=== PATIENT | male | born 1985 | race Caucasian/White ===

== ENCOUNTER 2022-11-07 22:01 | Inpatient (IN) | payer OTHER ==
[~2022-11-07 22:01] MED LIST: Iopamidol 300 61% 100 ML VIAL FS ONE
[2022-11-07 22:53] LABS: #Basophils 0.1 10x3/uL (0.0-0.2); #Eosinphils 0.2 10x3/uL (0.0-0.5); #Monocytes 1.4 10x3/uL (0.0-1.1); #Neutrophils 7.9 10x3/uL (1.5-8.4); %Basophils 0.6 % (0.0-2.0); %Eosinophils 1.9 % (0.0-6.0); %Lymphocytes 21.4 % (18.0-47.0); %Monocytes 11.6 % (0.0-10.0); %Neutrophils 64.2 % (40.0-75.0); Hemoglobin 12.7 g/dL (13.5-17.5); Mean Corpuscular HGB CONC 32.6 g/dL (32.0-36.0); Mean Corpuscular Hemoglobin 28.7 pg (27.0-33.0); Mean Corpuscular Volume 87.8 fl (81.2-95.1); Mean Platelet Volume 9.1 fl (7.4-10.4); Platelet Count 565 10x3/uL (150-450); RBC Distribution Width 17.2 % (11.5-14.5); Red Blood Cell (RBC) Count 4.43 10x6/uL (4.32-5.72); White Blood Cell (WBC) Count 12.4 10x3/uL (3.5-10.5)
[2022-11-07] MEDS ORDERED: Ondansetron PF 4 MG/2 ML Vial ONE (22:54)
[2022-11-07 23:07] LABS: Acetaminophen Less than 10 mcg/mL (10.0-30.0); Alcohol Less than 10.0 mg/dL (Less than 10); Salicylate Less than 8.0 mg/dL (15.0-30.0)
[2022-11-07 23:09] LABS: ALT (SGPT) 23 U/L (8-55); AST (SGOT) 28 U/L (5-34); Albumin 4.6 g/dL (3.5-5.0); Alkaline Phosphatase 90 U/L (40-110); Anion Gap 16 mmol/L (10-20); BUN (Urea Nitrogen) 9 mg/dL (8.9-20.6); Bilirubin, Total 0.3 mg/dL (0.2-1.2); CK (CPK) 630 U/L (30-200); Calc. Creatinine Clearance 0 mL/min (70-130); Calcium 10.1 mg/dL (7.8-10.44); Carbon Dioxide 23 mmol/L (22-29); Chloride 104 mmol/L (98-107); Estimated GFR 114; Globulin 2.9 g/dL (2.4-3.5); Glucose 119 mg/dL (70-105); Lipase 9 U/L (8-78); Magnesium 1.6 mg/dL (1.6-2.6); Potassium 3.9 mmol/L (3.5-5.1); Protein, Total 7.5 g/dL (6.0-8.3); Sodium 139 mmol/L (136-145)
[2022-11-07] MEDS ORDERED: Ketorolac Tromethamine 30 MG/ML VIAL ONE (23:35)
[2022-11-08 01:13] LABS: Bilirubin Neg (Negative); Blood, Urine Negative (Negative); Clarity Clear (Clear); Glucose, Urine (Dipstick) Normal (Negative); Ketone, Urine Negative (Negative); Leukocyte Negative (Negative); Nitrite Negative (Negative); Protein, Urine (Dipstick) 30 mg/dl (Neg-Trace); Urobilinogen Normal mg/dL (Less than 2)
[2022-11-08] MEDS ORDERED: hydrOXYzine 25 MG TAB ONE (01:13)
[2022-11-08 01:20] LABS: Amphetamine Not Detected (NotDetected); Barbiturates Screen Not Detected (NotDetected); Benzodiazepine Screen Detected (NotDetected); Cocaine Metabolite Screen Not Detected (NotDetected); Methadone Not Detected (NotDetected); Methamphetamine Not Detected (NotDetected); Opiate Screen Not Detected (NotDetected); Oxycodone Screen Not Detected (NotDetected); Phencyclidine (PCP) Not Detected (NotDetected); THC/Cannabinoid Screen Not Detected (NotDetected); Tricyclic Screen Detected (NotDetected)
[2022-11-08 01:54] LABS: CAUTI Indications for Culture Alt mental st,lethar; RBC/HPF None Seen HPF (0-3); Squamous Epithelial None Seen HPF (0-3); WBC/HPF 0-3 HPF (0-3)
[2022-11-08 01:55] LABS: Bacteria/HPF None Seen HPF (None Seen); Urine Culture Reflex No No
[2022-11-08] MEDS ORDERED: Dicyclomine 20 MG/2 ML VIAL ONE (02:35)
[2022-11-08] MEDS ORDERED: Acetaminophen 325 MG TAB PO PRN (03:15)
[2022-11-08] MEDS ORDERED: Nicotine 14 MG PATCH TD SCH (03:15)
[2022-11-08] MEDS ORDERED: Ondansetron PF 4 MG/2 ML Vial IVP PRN (03:15)
[2022-11-08] MEDS ORDERED: Metoprolol Tartrate 25 MG TAB PO SCH (03:15)
[2022-11-08] MEDS ORDERED: Calcium Carbonate 500 MG ChewTAB PO PRN (03:15)
[2022-11-08] MEDS ORDERED: Senokot S 8.6-50 MG TAB PO PRN (03:15)
[2022-11-08] MEDS ORDERED: Guaifenesin DM 100-10/5 ML UDCUP PO PRN (03:15)
[2022-11-08] MEDS ORDERED: Nicotine 14 MG PATCH TD PRN (03:22)
[2022-11-08] MEDS ORDERED: Cyclobenzaprine 10 MG TAB PO PRN (03:23)
[2022-11-08] MEDS ORDERED: Dicyclomine 10 MG CAP PO PRN (03:23)
[2022-11-08 04:04] VITALS: BMI 18.8
[2022-11-08] MEDS ORDERED: Magnesium 2 GM/50 ML(in water) 2 GM in Premix Bag 1 BAG IVPB SCH (04:15)
[2022-11-08] MEDS ORDERED: cloNIDine 0.1 MG TAB PO SCH (04:15)
[2022-11-08] MEDS ORDERED: Lorazepam 2 MG/ML VIAL SLOW IVP SCH ×3 (04:15→14:44)
[2022-11-08] MEDS ORDERED: Thiamine HCl 200 MG/2 ML VIAL SLOW IVP SCH (04:15)
[2022-11-08] MEDS: Sodium Chloride 0.9% 1,000 ML IV SCH ×2 (04:32→12:47)
[2022-11-08] MEDS: Metoprolol Tartrate 25 MG TAB PO SCH ×2 (08:38→22:07)
[2022-11-08] MEDS: Sucralfate 1 GM TAB PO SCH ×4 (08:38→22:07)
[2022-11-08] MEDS: Multivitamin W/ Minerals 1 TAB PO SCH (08:38)
[2022-11-08] MEDS: Thiamine 100 MG TAB PO SCH (08:38)
[2022-11-08] MEDS: Folic Acid 1 MG TAB PO SCH (08:39)
[2022-11-08] MEDS: Buprenorphine 8mg/Naloxone 2mg per 1 FILM PO SCH (08:39)
[2022-11-08] MEDS: Pancrelipase DR 12,000 1 CAP PO SCH ×3 (08:39→16:04)
[2022-11-08] MEDS ORDERED: Lorazepam 1 MG TAB PO SCH (09:00)
[2022-11-08] MEDS ORDERED: QUEtiapine 25 MG TAB PO SCH ×2 (12:15→21:00)
[2022-11-08] MEDS ORDERED: Lorazepam 1 MG TAB PO PRN (12:24)
[2022-11-08] MEDS: chlordiazePOXIDE HCl 25 MG CAP PO SCH ×2 (14:11→22:06)
[2022-11-08] MEDS ORDERED: Dexmedetomidine In 0.9 % NaCl 100 ML IVPB SCH (17:45)
[2022-11-09] MEDS: Sodium Chloride 0.9% 1,000 ML IV SCH (02:12)
[2022-11-09 03:38] LABS: #Basophils 0.1 10x3/uL (0.0-0.2); #Eosinphils 0.3 10x3/uL (0.0-0.5); #Monocytes 1.2 10x3/uL (0.0-1.1); #Neutrophils 5.8 10x3/uL (1.5-8.4); %Basophils 0.8 % (0.0-2.0); %Lymphocytes 24.6 % (18.0-47.0); %Neutrophils 59.4 % (40.0-75.0); Hemoglobin 10.5 g/dL (13.5-17.5); Mean Corpuscular HGB CONC 31.4 g/dL (32.0-36.0); Mean Corpuscular Hemoglobin 28.5 pg (27.0-33.0); Mean Corpuscular Volume 90.8 fl (81.2-95.1); Mean Platelet Volume 9.6 fl (7.4-10.4); Platelet Count 399 10x3/uL (150-450); RBC Distribution Width 16.9 % (11.5-14.5); Red Blood Cell (RBC) Count 3.68 10x6/uL (4.32-5.72); White Blood Cell (WBC) Count 9.8 10x3/uL (3.5-10.5)
[2022-11-09 03:57] LABS: Anion Gap 13 mmol/L (10-20); BUN (Urea Nitrogen) 9 mg/dL (8.9-20.6); CK (CPK) 684 U/L (30-200); Calc. Creatinine Clearance 135 mL/min (70-130); Carbon Dioxide 21 mmol/L (22-29); Chloride 108 mmol/L (98-107); Estimated GFR 121; Glucose 70 mg/dL (70-105); Magnesium 1.8 mg/dL (1.6-2.6); Potassium 3.9 mmol/L (3.5-5.1); Sodium 138 mmol/L (136-145)
[2022-11-09] MEDS: QUEtiapine 100 MG TAB PO SCH (09:03)
[2022-11-09] MEDS: Folic Acid 1 MG TAB PO SCH (09:03)
[2022-11-09] MEDS: Metoprolol Tartrate 25 MG TAB PO SCH ×2 (09:03→20:01)
[2022-11-09] MEDS: Thiamine 100 MG TAB PO SCH (09:03)
[2022-11-09] MEDS: Buprenorphine 8mg/Naloxone 2mg per 1 FILM PO SCH (09:03)
[2022-11-09] MEDS: chlordiazePOXIDE HCl 25 MG CAP PO SCH ×3 (09:03→20:00)
[2022-11-09] MEDS: Multivitamin W/ Minerals 1 TAB PO SCH (09:03)
[2022-11-09] MEDS: Sucralfate 1 GM TAB PO SCH ×4 (09:03→20:00)
[2022-11-09] MEDS: Bupropion 150 MG XL TAB PO SCH (09:03)
[2022-11-09] MEDS: Pancrelipase DR 12,000 1 CAP PO SCH ×3 (09:45→16:40)
[2022-11-10 04:29] LABS: Anion Gap 12 mmol/L (10-20); BUN (Urea Nitrogen) 7 mg/dL (8.9-20.6); CK (CPK) 345 U/L (30-200); Calc. Creatinine Clearance 137 mL/min (70-130); Calcium 8.9 mg/dL (7.8-10.44); Carbon Dioxide 25 mmol/L (22-29); Chloride 108 mmol/L (98-107); Estimated GFR 121; Glucose 99 mg/dL (70-105); Magnesium 1.6 mg/dL (1.6-2.6); Potassium 3.8 mmol/L (3.5-5.1); Sodium 141 mmol/L (136-145)
[2022-11-10] MEDS: Sucralfate 1 GM TAB PO SCH ×4 (06:43→20:01)
[2022-11-10] MEDS: chlordiazePOXIDE HCl 25 MG CAP PO SCH ×2 (08:12→20:01)
[2022-11-10] MEDS: QUEtiapine 100 MG TAB PO SCH (08:12)
[2022-11-10] MEDS: Multivitamin W/ Minerals 1 TAB PO SCH (08:12)
[2022-11-10] MEDS: Bupropion 150 MG XL TAB PO SCH (08:12)
[2022-11-10] MEDS: Pancrelipase DR 12,000 1 CAP PO SCH ×3 (08:12→16:46)
[2022-11-10] MEDS: Thiamine 100 MG TAB PO SCH (08:12)
[2022-11-10] MEDS: Metoprolol Tartrate 25 MG TAB PO SCH ×2 (08:12→20:01)
[2022-11-10] MEDS: Folic Acid 1 MG TAB PO SCH (08:12)
[2022-11-10] MEDS: Buprenorphine 8mg/Naloxone 2mg per 1 FILM PO SCH (08:13)
[2022-11-10] MEDS ORDERED: Magnesium 2 GM/50 ML(in water) 2 GM in Premix Bag 1 BAG IVPB SCH (12:15)
[2022-11-10] MEDS ORDERED: Electrolyte Replacement Protocol 1 EACH FS PRN (12:21)
[2022-11-10] MEDS ORDERED: Ketorolac Tromethamine 30 MG/ML VIAL IVP SCH (15:00)
[2022-11-10] MEDS ORDERED: Ketorolac Tromethamine 30 MG/ML VIAL IVP PRN (20:14)
[2022-11-10] MEDS ORDERED: Acetaminophen 500 MG TAB PO SCH (20:15)
[2022-11-11 03:27] LABS: Hemoglobin 10.7 g/dL (13.5-17.5); Mean Corpuscular Hemoglobin 28.5 pg (27.0-33.0); Mean Corpuscular Volume 88.8 fl (81.2-95.1); Mean Platelet Volume 9.4 fl (7.4-10.4); Platelet Count 369 10x3/uL (150-450); RBC Distribution Width 16.3 % (11.5-14.5); Red Blood Cell (RBC) Count 3.76 10x6/uL (4.32-5.72); White Blood Cell (WBC) Count 6.4 10x3/uL (3.5-10.5)
[2022-11-11 03:42] LABS: ALT (SGPT) 19 U/L (8-55); AST (SGOT) 19 U/L (5-34); Albumin 3.4 g/dL (3.5-5.0); Alkaline Phosphatase 80 U/L (40-110); Anion Gap 10 mmol/L (10-20); BUN (Urea Nitrogen) 13 mg/dL (8.9-20.6); Bilirubin, Total 0.1 mg/dL (0.2-1.2); CK (CPK) 150 U/L (30-200); Calc. Creatinine Clearance 124 mL/min (70-130); Calcium 8.8 mg/dL (7.8-10.44); Carbon Dioxide 26 mmol/L (22-29); Chloride 107 mmol/L (98-107); Estimated GFR 118; Globulin 2.1 g/dL (2.4-3.5); Glucose 131 mg/dL (70-105); Magnesium 1.7 mg/dL (1.6-2.6); Phosphorus 3.8 mg/dL (2.3-4.7); Potassium 4.2 mmol/L (3.5-5.1); Protein, Total 5.5 g/dL (6.0-8.3); Sodium 139 mmol/L (136-145)
[2022-11-11 04:22] LABS: MDiff Complete? YES
[2022-11-11 04:27] LABS: Eosinophils 4 % (0-10); Lymphocytes 29 % (21-51); Monocytes 11 % (0-10); Neutrophil 56 % (42-75)
[2022-11-11 04:28] LABS: Platelet Adequacy Comment Appears Adequate; RBC Morph Comment Within Normal Limits
[2022-11-11 05:52] VITALS: BP 98/65; TEMP 98.7
[2022-11-11] MEDS ORDERED: Magnesium 2 GM/50 ML(in water) 2 GM in Premix Bag 1 BAG IVPB SCH (06:00)
[2022-11-11] MEDS: Sucralfate 1 GM TAB PO SCH ×3 (06:52→16:48)
[2022-11-11] MEDS: Pancrelipase DR 12,000 1 CAP PO SCH ×3 (07:46→16:48)
[2022-11-11] MEDS: Folic Acid 1 MG TAB PO SCH (07:46)
[2022-11-11] MEDS: Buprenorphine 8mg/Naloxone 2mg per 1 FILM PO SCH (07:46)
[2022-11-11] MEDS: Bupropion 150 MG XL TAB PO SCH (07:47)
[2022-11-11] MEDS: QUEtiapine 100 MG TAB PO SCH (07:47)
[2022-11-11] MEDS: Multivitamin W/ Minerals 1 TAB PO SCH (07:47)
[2022-11-11] MEDS: Metoprolol Tartrate 25 MG TAB PO SCH (07:47)
[2022-11-11] MEDS: chlordiazePOXIDE HCl 25 MG CAP PO SCH (07:47)
[2022-11-11] MEDS: Thiamine 100 MG TAB PO SCH (07:47)
[2022-11-12] MEDS ORDERED: chlordiazePOXIDE HCl 25 MG CAP PO SCH (09:00)
[2022-11-12] MEDS ORDERED: Buprenorphine 8mg/Naloxone 2mg per 1 FILM PO SCH (09:00)
== END 2022-11-11 17:00 | DRG 897 ==
LOC: CSHERS 22:01 → CSHTELE 11-08 03:56 → CSHIMCU 11-08 15:21 → OBSVTOIN 11-09 14:18
PROVIDERS: ADMIT Student in an Organized Health Care Education/Training Program; ATTEND Internal Medicine
DX: F11.23 Opioid dependence with withdrawal (principal); K86.1 Other chronic pancreatitis; R65.10 Systemic inflammatory response syndrome (SIRS) of non-infectious origin without acute organ dysfunction; M62.82 Rhabdomyolysis; T40.2X5A Adverse effect of other opioids, initial encounter; F41.9 Anxiety disorder, unspecified; I10 Essential (primary) hypertension; F17.210 Nicotine dependence, cigarettes, uncomplicated; E86.0 Dehydration; D72.829 Elevated white blood cell count, unspecified; G89.29 Other chronic pain; F39 Unspecified mood [affective] disorder; Z88.8 Allergy status to other drugs, medicaments and biological substances; Z71.6 Tobacco abuse counseling; Z79.899 Other long term (current) drug therapy
CPT/HCPCS: 36415; 74177; 80048; 80053; 80306; 80307; 81001; 82140; 82550; 83605; 83690; 83735; 84100; 84443; 85025; 93005; 96361; 96365; 96366; 96372; 96374; 96375; 96376; G0378; J0571; J1650; J1885; J2060; J2405; J3411; J3475; J7050; Q9967